=== PATIENT | female | born 1970 | race Caucasian/White ===

== ENCOUNTER 2017-05-31 18:06 | Emergency (ER) | payer OTHER ==
[~2017-05-31] VITALS: Ht 157.5 cm; Wt 109.3 kg
[~2017-05-31 18:06] MED LIST: ASPIRIN 81MG TA81 MG PO; FLONASE 50 MCG16 GM; METOPROLOL25 MG PO; NORCO1 TAB PO; SPRINTEC 35 MCG1 TAB PO; ZYRTEC10 M2 PO
--- OUTSIDE RECORDS SUMMARY | 2017-05-31 18:39 | External Medical Summary Rpt ---
Author Author [employer], [employer] Organization [employer] Address Unknown Phone Unavailable
--- OUTSIDE RECORDS SUMMARY | 2017-05-31 18:39 | External Medical Summary Rpt ---
Author Author , VANESSA FRANCO Address Unknown Phone [email or web address] Purpose Continuity of Care Document - 02-08-2017 through 2016 Results Labs Lab Lab Date Result Refere Interp Status Commen Order Detail nces retati t Range on Phosphate SerPl-mCnc (02-09-2017 03:22) Phospha 2.1 2.5-4.5 complet te 017 mg/dL ed SerPl-m 03:22 Cnc Magnesium SerPl-mCnc (02-09-2017 03:22) Magnesi 2.0 1.9-2.4 complet um 017 mg/dL ed SerPl-m 03:22 Cnc Ca-I SerPl ISE-sCnc (02-09-2017 03:22) Ca-I 4.7 4.6-5.1 complet SerPl 017 mg/dL ed ISE-sCn 03:22 c Phosphate SerPl-mCnc (02-08-2017 05:32) Phospha 3.0 2.5-4.5 complet te 017 mg/dL ed SerPl-m 05:32 Cnc Magnesium SerPl-mCnc (02-08-2017 05:32) Magnesi 2.2 1.9-2.4 complet um 017 mg/dL ed SerPl-m 05:32 Cnc Ca-I SerPl ISE-sCnc (02-08-2017 05:32) Ca-I 4.4 4.6-5.1 complet SerPl 017 mg/dL ed ISE-sCn 05:32 c
--- OUTSIDE RECORDS SUMMARY | 2017-05-31 18:39 | External Medical Summary Rpt ---
Demographics Preferred Language Upper Sorbian Marital Status Unknown Jewish Affiliation Unknown Race Unknown Ethnic Group Unknown Author Author VANESSA Address Unknown Phone Immunization No patient found.
--- OUTSIDE RECORDS SUMMARY | 2017-05-31 18:39 | External Medical Summary Rpt ---
Author Author VANESSA Address Unknown Phone Purpose Continuity of Care Document - through 2016
--- OUTSIDE RECORDS SUMMARY | 2017-05-31 18:39 | External Medical Summary Rpt ---
Author Author VANESSA Address Unknown Phone [email or web address] Purpose Continuity of Care Document - through 2016
--- OUTSIDE RECORDS SUMMARY | 2017-05-31 18:39 | External Medical Summary Rpt ---
Author Author , VANESSA FRANCO Address Unknown Phone [email or web address] Purpose Continuity of Care Document - 02-08-2017 [...]
--- OUTSIDE RECORDS SUMMARY | 2017-05-31 18:39 | External Medical Summary Rpt ---
Demographics Preferred Language Greek Marital Status Unknown Protestant Affiliation Unknown Race Unknown Ethnic Group Unknown Author Author VANESSA Address Unknown Phone Immunization No patient found.
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
[2017-05-31] MEDS ORDERED: FLEXERIL10 MG PO (20:47)
[2017-05-31] MEDS ORDERED: Mobic7.5 MG PO (20:47)
[2017-05-31 21:28] VITALS: BP 125/79
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
== END 2017-05-31 21:29 | disposition home or self-care (01) ==
LOC: ER 18:06
DX: S29.019A Strain of muscle and tendon of unspecified wall of thorax, initial encounter (principal); I10 Essential (primary) hypertension; V43.52XA Car driver injured in collision with other type car in traffic accident, initial encounter; Y92.414 Local residential or business street as the place of occurrence of the external cause